=== PATIENT | male | born 1985 | race Caucasian/White ===

== ENCOUNTER 2017-01-06 06:01 | Emergency (ER) | payer OTHER ==
[2017-01-06 06:29] VITALS: BP 146/86; PULSE 87; TEMP 97.6; BMI 28.3
[2017-01-06] MEDS ORDERED: CLINDAMYCIN HCL 150 MG CAPSULE (FP) PO ONE (08:02)
[2017-01-06] MEDS ORDERED: predniSONE 20 MG TABLET (UD) PO ONE (08:02)
--- NOTE | 2017-01-06 08:04 | PDOC ---
History of Present Illness - General Chief Complaint: Redness To Affected Area Stated Complaint: REDNESS/SWELLING RT SIDE Time Seen by Provider: 01/06/17 07:04 History Source: Patient, Sibling Exam Limitations: No Limitations - History of Present Illness Initial Comments: 01/06/17 08:06 31-year-old male presents to the emergency room with complaints of swelling to the right cheek since yesterday morning. Patient states awoke with a small little red dot and by the end of the day became swollen and itchy. Patient states did squeeze it this morning and within an hour the swelling increased along with draining clear fluid. Patient denies recent dental infection, ear pain, sore throat, nasal congestion, fever, chills, or radiation of pain. Patient denies of diabetes and MRSA. Timing/Duration: other (2 days) Severity: mild Associated Symptoms: reports: other Past History - Travel Traveled outside of the country in the last 30 days: No - Past Medical History Allergies/Adverse Reactions: Allergies Allergy/AdvReac Type Severity Reaction Status Date / Time esomeprazole magnesium Allergy Verified 01/06/17 06:26 [From Nexium] Home Medications: Ambulatory Orders Clindamycin [Cleocin -] 300 mg PO TID #20 capsule 01/06/17 Cyclobenzaprine HCl [Flexeril -] 5 mg PO TID PRN #6 tablet 01/06/17 Losartan Potassium 100 mg PO DAILY 01/06/17 Prednisone [Deltasone -] 40 mg PO DAILY #8 tablet 01/06/17 Anemia: No Asthma: No Cancer: No Cardiac Disorders: No CVA: No COPD: No DVT: No Dementia: No Diabetes: No Dialysis: No GI Disorders: No Disorders: No HTN: Yes Hypercholesterolemia: No Kidney Stones: No Liver Disease: No Psychiatric Problems: No Seizures: No Thyroid Disease: No Lung CA: No - Suicide/Smoking/Psychosocial Hx Smoking History: Never smoked Have you smoked in the past 12 months: No Information on smoking cessation initiated: No Hx Alcohol Use: No Drug/Substance Use Hx: No Substance Use Type: None Patient Lives Alone: No Lives with/in: spouse/SO Review of Systems - Review of Systems Able to Perform ROS?: Yes Constitutional: No: Symptoms Reported HEENTM: No: Symptoms Reported Respiratory: No: Symptoms reported Musculoskeletal: Yes: Neck Pain (neck stiffness x 4 days) Integumentary: Yes: Erythema, Lumps Neurological: No: Symptoms reported *Physical Exam - Vital Signs Last Vital Signs Temp Pulse Resp BP Pulse Ox 97.6 F 87 20 146/86 100 01/06/17 06:27 01/06/17 06:27 01/06/17 06:27 01/06/17 06:27 01/06/17 06:27 - Physical Exam General Appearance: Yes: Nourished, Appropriately Dressed. No: Apparent Distress HEENT: positive: EOMI, NAT, Normal Voice, TMs Normal, Pharynx Normal Neck: positive: Tender (rt trapezius), Normal Thyroid, Supple. negative: Decreased range of motion, Lymphadenopathy (R), Lymphadenopathy (L) Respiratory/Chest: positive: Lungs Clear, Normal Breath Sounds. negative: Respiratory Distress, Accessory Muscle Use Integumentary: positive: Other (Patient with 3 x 3 cm raised erythematous tender firm mass to his right upper cheek weeping serosanguineous fluid from Center. No fluctuance . surrounding skin intact. ) Neurologic: positive: Motor Strength 5/5 (ambulatory) Medical Decision Making - Medical Decision Making 01/06/17 08:15 Patient here with cellulitis to his right cheek since yesterday morning likely due to a spider bite. area was swabbed for MRSA and patient will be treated with clindamycin and prednisone. In regards to patient's neck stiffness. patient will be given 6 tablets of Flexeril. Patient also told if the swelling worsens including involvement of the eye to return to the nearest emergency room. *DC/Admit/Observation/Transfer Diagnosis at time of Disposition: Cellulitis of right external cheek - Discharge Dispostion Disposition: HOME Condition at time of disposition: Good - Prescriptions Prescriptions: Clindamycin [Cleocin -] 300 mg PO TID #20 capsule Prednisone [Deltasone -] 40 mg PO DAILY #8 tablet Cyclobenzaprine HCl [Flexeril -] 5 mg PO TID PRN #6 tablet PRN Reason: Muscle Spasms - Referrals Referrals: Sidney Parra MD [Primary Care Provider] - - Patient Instructions Printed Discharge Instructions: DI for Cellulitis -- Adult Additional Instructions: Please apply warm compress to the cheek 3-4 times a day for 15 minutes. Please do not manipulate or squeeze area. Take antibiotics and steroids as prescribed. If symptoms worsen and spreads to the neck or eye please return to the ED immediately. - Post Discharge Activity Forms/Work/School Notes: Back to Work
[2017-01-06] MEDS ORDERED: CLINDAMYCIN HCL 150 MG CAPSULE (FP) ONE (08:06)
[2017-01-06] MEDS ORDERED: predniSONE 20 MG TABLET (UD) ONE (08:06)
== END 2017-01-06 08:16 | disposition home or self-care (01) ==
LOC: JER 06:01
DX: L03.211 Cellulitis of face (principal)
CPT/HCPCS: 87070; 87205; 99282-25

== ENCOUNTER 2017-11-27 15:43 | Emergency (ER) | payer OTHER ==
--- NOTE | 2017-11-27 15:56 | PDOC ---
Rapid Medical Evaluation Chief Complaint: Bleeding from Anus Time Seen by Provider: 11/27/17 15:53 Medical Evaluation: Allergies Allergy/AdvReac Type Severity Reaction Status Date / Time esomeprazole magnesium Allergy Verified 01/06/17 06:26 [From Nexium] 11/27/17 15:53 I have performed a brief in-person evaluation of this patient. The patient presents with a CC of: Rectal Bleeding/Possible hemorrhoid. HPI: Pt is 32 YO male who states that he "thinks he has hemorrhoids and has had some rectal bleeding." Pt denies constipation. Pt denies being on anticoagulants. Pertinent PE findings: Skin: Race appropriate, no pallor Lungs: Clear Heart: RRR MS: Moves all extremities Psych: Appropriate affect I have ordered the following: no labs at this point, pt's VS are WNL, this most likely is a hemorrhoid. The patient will proceed to the ED for further evaluation.
[2017-11-27 15:57] VITALS: BP 161/102; PULSE 77; TEMP 98.6; BMI 26.6
--- NOTE | 2017-11-27 16:38 | PDOC ---
History of Present Illness - General Chief Complaint: Bleeding from Anus Stated Complaint: PAIN Time Seen by Provider: 11/27/17 15:53 History Source: Patient Exam Limitations: No Limitations - History of Present Illness Travel History: No Initial Comments: 11/27/17 16:33 Patient came for evaluation of what thought to be hemorrhoids. States yesterday had a tender lesion and an outpouching from rectum, after Google search realize was probably hemorrhoids. Patient states had some bright red blood on toilet tissue but has had no manas red blood in stool. Denies fever, denies constipation, denies nausea or vomiting. No history of hemorrhoids. Works for [employer] primarily [employer] work Timing/Duration: reports: intermittent Quality: reports: mild, burning Past History - Past Medical History Allergies/Adverse Reactions: Allergies Allergy/AdvReac Type Severity Reaction Status Date / Time esomeprazole magnesium Allergy Verified 01/06/17 06:26 [From Nexium] Home Medications: Ambulatory Orders Clindamycin [Cleocin -] 300 mg PO TID #20 capsule 01/06/17 Cyclobenzaprine HCl [Flexeril -] 5 mg PO TID PRN #6 tablet 01/06/17 Losartan Potassium 100 mg PO DAILY 01/06/17 predniSONE [Deltasone -] 40 mg PO DAILY #8 tablet 01/06/17 Anemia: No Asthma: No Cancer: No Cardiac Disorders: No CVA: No COPD: No DVT: No Dementia: No Diabetes: No Dialysis: No GI Disorders: No Disorders: No HTN: Yes Hypercholesterolemia: No Kidney Stones: No Liver Disease: No Psychiatric Problems: No Seizures: No Thyroid Disease: No Lung CA: No - Suicide/Smoking/Psychosocial Hx Smoking History: Never smoked Have you smoked in the past 12 months: No Information on smoking cessation initiated: No Hx Alcohol Use: No Drug/Substance Use Hx: No Substance Use Type: None *Physical Exam - Vital Signs Last Vital Signs Temp Pulse Resp BP Pulse Ox 98.6 F 77 18 161/102 100 11/27/17 15:54 11/27/17 15:54 11/27/17 15:54 11/27/17 15:54 11/27/17 15:54 - Physical Exam General Appearance: Yes: Nourished, Appropriately Dressed, Apparent Distress, Mild Distress HEENT: positive: NAT, Normal ENT Inspection, TMs Normal, Pharynx Normal Neck: positive: Supple. negative: Tender Respiratory/Chest: positive: Lungs Clear Gastrointestinal/Abdominal: positive: Normal Bowel Sounds, Soft. negative: Tender Rectal Exam: positive: normal exam, hemorrhoids (patient with a soft external hemorrhoid, easily reduced. No evidence of thrombosis, not exquisite pain or fissure.) Musculoskeletal: negative: Normal Inspection Integumentary: positive: Normal Color, Dry, Warm, Pale Neurologic: positive: internet researcher II-XII NML intact, Fully Oriented, Alert, Normal Mood/ Affect, Normal Response, Motor Strength 5/5 Progress Note - Progress Note Progress Note: External hemorrhoid, easily reduced. Discussed use of Anusol suppositories and conservative measures. Referred to colorectal surgeon PMD. *DC/Admit/Observation/Transfer Diagnosis at time of Disposition: Hemorrhoids, external - Discharge Dispostion Disposition: HOME Condition at time of disposition: Stable Decision to Admit order: No - Referrals Referrals: Sidney Parra MD [Primary Care Provider] - - Patient Instructions Printed Discharge Instructions: DI for Hemorrhoids Additional Instructions: Rest, avoid strenuous activity or heavy lifting until symptoms resolve Drink plenty of water, fluids, keep diet soft to help assist with softer bowel movements Use stool softener until hemorrhoids resolve Hot tub baths, hot soaks to rectal wall to help resolve some swelling, burning and itching May use Tucks or special preparation wipes to bottom to help resolve swelling and itching May use [id number] preparations, like Preparation H to help reduce swelling and assist with itching and discomfort Anusol suppositories 1 suppository every 8-12 hours as needed Follow-up with private physician or colorectal surgeon for reevaluation as needed Return to emergency department for worsened pain, firmness to hemorrhoid, worsened bleeding. - Post Discharge Activity Forms/Work/School Notes: Back to Work
== END 2017-11-27 16:48 | disposition home or self-care (01) ==
LOC: JERFT 15:43
DX: K64.4 Residual hemorrhoidal skin tags (principal); I10 Essential (primary) hypertension
CPT/HCPCS: 99281-25

== ENCOUNTER 2018-05-30 20:41 | Emergency (ER) | payer OTHER ==
[2018-05-30 20:46] VITALS: BP 161/81; PULSE 92; TEMP 98.3; BMI 25.7
--- NOTE | 2018-05-30 20:46 | PDOC ---
Rapid Medical Evaluation Chief Complaint: Cold Symptoms Time Seen by Provider: 05/30/18 20:45 Medical Evaluation: Allergies Allergy/AdvReac Type Severity Reaction Status Date / Time esomeprazole magnesium Allergy Verified 01/06/17 06:26 [From Nexium] 05/30/18 20:45 Pt c/o: runny nose, no other complaint Pt on brief exam: vss, breathing via nares, lcta Pt ordered for: none Pt to proceed to the ED Discharge Disposition - Diagnosis Runny nose - Referrals - Patient Instructions - Post Discharge Activity
[2018-05-30] MEDS ORDERED: DEXAMETHASONE LIQUID 0.5 MG/5 ML 240 ML BULK BOTTLE PO ONE (21:58)
[2018-05-30] MEDS ORDERED: AMOXICILLIN 500 MG CAPSULE (FP) PO ONE (21:58)
--- NOTE | 2018-05-30 21:58 | PDOC ---
History of Present Illness - General Chief Complaint: Cold Symptoms Stated Complaint: SORE THROAT Time Seen by Provider: 05/30/18 20:45 History Source: Patient Exam Limitations: No Limitations - History of Present Illness Initial Comments: 05/30/18 22:26 The patient is a 33-year-old male past medical history who presents to the ER today with sore throat. He states he has had a sore throat the last 3 days. He states that his children have both had strep infections over the past 2 weeks. His presents with similar symptoms. Admits to nasal congestion. Denies cough, fever, nausea, vomiting and diarrhea. Past History - Travel Traveled outside of the country in the last 30 days: No Close contact w/someone who was outside of country & ill: No - Past Medical History Allergies/Adverse Reactions: Allergies Allergy/AdvReac Type Severity Reaction Status Date / Time esomeprazole magnesium Allergy Verified 01/06/17 06:26 [From Nexium] Home Medications: Ambulatory Orders Losartan Potassium 100 mg PO DAILY 01/06/17 Amoxicillin - [Amoxicillin 500mg Capsule -] 500 mg PO BID #14 capsule 05/30/18 Anemia: No Asthma: No Cancer: No Cardiac Disorders: No CVA: No COPD: No DVT: No Dementia: No Diabetes: No Dialysis: No GI Disorders: No Disorders: No HTN: Yes Hypercholesterolemia: No Kidney Stones: No Liver Disease: No Psychiatric Problems: No Seizures: No Thyroid Disease: No Lung CA: No - Suicide/Smoking/Psychosocial Hx Smoking History: Never smoked Have you smoked in the past 12 months: No Information on smoking cessation initiated: No Hx Alcohol Use: No Drug/Substance Use Hx: No Substance Use Type: None Review of Systems - Review of Systems Able to Perform ROS?: Yes Comments:: 05/30/18 22:24 CONSTITUTIONAL: Absent: fever, chills, diaphoresis, generalized weakness, malaise, loss of appetite HEENT: Present: sore throat, nasal congestion Absent: rhinorrhea, throat swelling, difficulty swallowing, mouth swelling, ear pain, eye pain, visual Changes CARDIOVASCULAR: Absent: chest pain, loss of consciousness, palpitations, irregular heart rate, peripheral edema RESPIRATORY: Absent: cough, shortness of breath, dyspnea with exertion, orthopnea, wheezing, stridor, hemoptysis SKIN: Absent: rash, itching, pallor NEUROLOGIC: Absent: headache, focal weakness or paresthesias, dizziness, unsteady gait, seizure, mental status changes, bladder or bowel incontinence PSYCHIATRIC: Absent: anxiety, depression, suicidal or homicidal ideation, hallucinations. Is the patient limited Hungarian proficient: No *Physical Exam - Vital Signs Last Vital Signs Temp Pulse Resp BP Pulse Ox 98.3 F 92 H 18 161/81 100 05/30/18 20:44 05/30/18 20:44 05/30/18 20:44 05/30/18 20:44 05/30/18 20:44 - Physical Exam Comments: 05/30/18 22:25 GENERAL: Well developed, well nourished. Awake and alert. No acute distress. HEENT: Normocephalic, atraumatic. PERRLA, EOMI. No conjunctival pallor. Sclera are non- icteric. Moist mucous membranes. Oropharynx is with erythema posteriorly. No exudate or edema. Uvula is midline NECK: Supple. Full ROM. No JVD. Carotid pulses 2+ and symmetric, without bruits. No thyromegaly. No lymphadenopathy. SKIN: Warm and dry. Normal capillary refill. No rashes. No jaundice. NEUROLOGICAL: Alert, awake, appropriate. Cranial nerves 2-12 intact. No deficits to light touch and temperature in face, upper extremities and lower extremities. No motor deficits in the in face, upper extremities and lower extremities. Normoreflexic in the upper and lower extremities. Normal speech. Toes are down- going bilaterally. Gait is normal without ataxia. PSYCHIATRIC: Cooperative. Good eye contact. Appropriate mood and affect. Moderate Sedation - Procedure Monitoring Vital Signs: Procedure Monitoring Vital Signs Temperature 98.3 F 05/30/18 20:44 Pulse Rate 92 H 05/30/18 20:44 Respiratory Rate 18 05/30/18 20:44 Blood Pressure 161/81 05/30/18 20:44 O2 Sat by Pulse Oximetry (%) 100 05/30/18 20:44 Medical Decision Making - Medical Decision Making 05/30/18 22:26 The patient is a 33-year-old male past medical history who presents to the ER today with sore throat for 3 days. On exam throat is erythematous without edema or exudate. His tested positive for strep throat. We'll treat empirically given symptoms and close proximity First dose of amoxicillin given in the ER. DC home with PCP follow-up. I discussed the physical exam findings, ancillary test results and final diagnoses with the patient. I answered all of the patient's questions. The patient was satisfied with the care received and felt comfortable with the discharge plan and treatment plan. The Patient agrees to follow up with the primary care physician/specialist within 24-72 hours. Return precautions were given. *DC/Admit/Observation/Transfer Diagnosis at time of Disposition: Strep throat - Discharge Dispostion Disposition: HOME Condition at time of disposition: Stable Decision to Admit order: No - Prescriptions Prescriptions: Amoxicillin - [Amoxicillin 500mg Capsule -] 500 mg PO BID #14 capsule - Referrals Referrals: Sidney Parra MD [Primary Care Provider] - - Patient Instructions Printed Discharge Instructions: DI for Strep Throat Additional Instructions: You have strep throat. This is a bacterial infection. Please take the amoxicillin 500 mg twice a day for one week. Please finish the prescription even if you feel better. You may take Motrin 800 mg every 8 hours as needed for pain or fever. Warm water gargles and cough drops and just may also help her symptoms. Please throw way your toothbrush 3 days into treatment to prevent reinfection. Please follow up with your primary care doctor next week. Return to emergency department if you have worsening pain, difficulty swallowing , changes in your voice, lightheadedness, dizziness, or any changes in your symptoms. - Post Discharge Activity Forms/Work/School Notes: Back to Work
[2018-05-30] MEDS ORDERED: AZITHROMYCIN 500 MG TABLET ONE (22:18)
[2018-05-30] MEDS ORDERED: DEXAMETHASONE SOD PHOSPHATE 10 MG/1 ML VIAL ONE (22:18)
[2018-05-30] MEDS ORDERED: AMOXICILLIN 250 MG CAPSULE ONE (22:19)
== END 2018-05-30 22:38 | disposition home or self-care (01) ==
LOC: JERFT 20:41
DX: J02.0 Streptococcal pharyngitis (principal); B95.5 Unspecified streptococcus as the cause of diseases classified elsewhere
CPT/HCPCS: 99281-25